=== PATIENT | male | born 1980 | race Caucasian/White ===

== ENCOUNTER 2018-04-27 13:47 | Emergency (ER) | payer OTHER ==
[~2018-04-27] VITALS: Ht 185.4 cm; Wt 85.0 kg
[2018-04-27] MEDS ORDERED: morphine 4 MG/ML inj SYRINge IV ONE (14:15)
[2018-04-27 15:00] VITALS: BP 132/78
[2018-04-27] MEDS ORDERED: ONDA8TAB13 PO (15:10)
[2018-04-27] MEDS ORDERED: HYDR-3965 PO (15:10)
[2018-04-27] MEDS ORDERED: FLO0.4C PO (15:10)
== END 2018-04-27 15:25 | disposition home or self-care (01) ==
LOC: ER 13:48
DX: R10.12 Left upper quadrant pain (principal); R11.2 Nausea with vomiting, unspecified; F17.200 Nicotine dependence, unspecified, uncomplicated; Z98.890 Other specified postprocedural states; Z79.899 Other long term (current) drug therapy
CPT/HCPCS: 76775; 96374; 99284; J2270